=== PATIENT | female | born 1960 | race Caucasian/White ===

== ENCOUNTER 2016-08-15 11:16 | Emergency (ER) | payer MEDICARE ==
[~2016-08-15] VITALS: Ht 172.7 cm; Wt 68.0 kg
[~2016-08-15 11:16] MED LIST: AMOX500T2 PO; HYDR1TAB10 PO; IBUP-1482 PO; LORA1TAB82 PO; TRAZ-144 PO; [UNRECOGNIZED DRUG - REMARK]
[2016-08-15 11:38] VITALS: BP 124/90
== END 2016-08-15 12:11 | disposition home or self-care (01) ==
LOC: ER 11:17
DX: J20.8 Acute bronchitis due to other specified organisms (principal); F17.210 Nicotine dependence, cigarettes, uncomplicated; Z88.1 Allergy status to other antibiotic agents; F32.9 Major depressive disorder, single episode, unspecified; F41.9 Anxiety disorder, unspecified
CPT/HCPCS: 99283; A4606; Z7610

== ENCOUNTER 2018-07-14 11:46 | Emergency (ER) | payer MEDICARE ==
[~2018-07-14] VITALS: Ht 172.7 cm; Wt 65.8 kg
[2018-07-14 11:46] VITALS: BP 101/60
[~2018-07-14 11:46] MED LIST changes: -IBUP-1482 PO; +IBUP-1958 PO; +LORA-259 PO; -LORA1TAB82 PO; -TRAZ-144 PO; +TRAZ-213 PO
--- NOTE | 2018-07-14 13:18 | NUR ---
Patient discharged to home in stable condition. Written and verbal after care instructions given. Patient verbalizes understanding of instruction.
== END 2018-07-14 13:18 | disposition home or self-care (01) ==
LOC: ER 11:58
DX: J22 Unspecified acute lower respiratory infection (principal); F17.210 Nicotine dependence, cigarettes, uncomplicated; F32.9 Major depressive disorder, single episode, unspecified; F41.9 Anxiety disorder, unspecified; Z90.89 Acquired absence of other organs; Z88.1 Allergy status to other antibiotic agents; Z88.5 Allergy status to narcotic agent
CPT/HCPCS: 99283; A4606; Z7610

== ENCOUNTER 2020-12-08 09:14 | Emergency (ER) | payer MEDICARE ==
[~2020-12-08] VITALS: Ht 172.7 cm; Wt 74.8 kg
[~2020-12-08 09:14] MED LIST changes: -TRAZ-213 PO; +TRAZ-252 PO
--- NOTE | 2020-12-08 09:40 | NUR ---
dr kirby at [facility] for eval.
--- NOTE | 2020-12-08 10:00 | NUR ---
pt no longer wants to stay. states will follow up w/ pmd. dr kirby aware
[2020-12-08 10:40] VITALS: BP 135/75
== END 2020-12-08 10:00 | disposition left against medical advice (07) ==
LOC: ER 09:18
DX: R60.0 Localized edema (principal); M25.462 Effusion, left knee; F32.9 Major depressive disorder, single episode, unspecified; F41.9 Anxiety disorder, unspecified; F17.200 Nicotine dependence, unspecified, uncomplicated; Z90.89 Acquired absence of other organs; Z88.1 Allergy status to other antibiotic agents; Z88.5 Allergy status to narcotic agent; Z79.899 Other long term (current) drug therapy
CPT/HCPCS: 71045-TC

== ENCOUNTER 2022-10-01 13:29 | Emergency (ER) | payer MEDICARE, OTHER ==
[~2022-10-01] VITALS: Ht 172.7 cm; Wt 74.8 kg
--- NOTE | 2022-10-01 13:35 | NUR ---
BILATERAL LEG SWELLING AND REDNESS, MORE ON THE LEFT X 3 DAYS
--- NOTE | 2022-10-01 17:51 | NUR ---
VASCULAR US AT BEDSIDE
[2022-10-01] MEDS ORDERED: CEPH500T PO (18:15)
[2022-10-01 18:18] VITALS: BP 142/88
--- NOTE | 2022-10-01 18:18 | NUR ---
Patient discharged to home in stable condition. Written and verbal after care instructions given. Patient verbalizes understanding of instruction.
== END 2022-10-01 18:18 | disposition home or self-care (01) ==
LOC: ER 13:30
DX: L03.116 Cellulitis of left lower limb (principal); F32.A Depression, unspecified; F41.9 Anxiety disorder, unspecified; F17.200 Nicotine dependence, unspecified, uncomplicated; Z90.89 Acquired absence of other organs; Z79.899 Other long term (current) drug therapy; Z88.1 Allergy status to other antibiotic agents; Z88.5 Allergy status to narcotic agent
CPT/HCPCS: 93970-TC